=== PATIENT | male | born 1945 | race Caucasian/White ===

== ENCOUNTER 2017-12-14 14:31 | Inpatient (IN) | payer MEDICARE, BC ==
[~2017-12-14] VITALS: Ht 193 cm; Wt 135.2 kg
[~2017-12-14 14:31] MED LIST: ATORVASTATIN CA80 MG PO; CLINDAMYCIN PHOS TOP; CYANOCOBAL1000 MCG/M INJ; DIVALPROEX SOD250 MG PO; ETODOLAC400 MG PO; LISINOPRIL40 MG PO; METFORMIN PO; MIRTAZAPINE30 MG PO; OMEPRAZOLE20 M1 PO; WAFARIN PO
[2017-12-14 15:03] LABS: BASOPHILS % 0.2 % (0.0-1.0); EOSINOPHILS % 0.2 % (0.0-6.0); HEMATOCRIT 31.2 % (38.2-49.6); HEMOGLOBIN 10.2 g/dL (14.0-18.0); LYMPHOCYTES # (AUTO) 1.2 (1.0-3.2); LYMPHOCYTES % 14.5 % (18.0-39.1); MEAN CORPUSCULAR HEMOGLOBIN 31.3 pg (28-32); MEAN CORPUSCULAR HGB CONC 32.7 g/dL (31-35); MEAN CORPUSCULAR VOLUME 95.7 fL (81-99); MONOCYTES # (AUTO) 0.6 (0.2-0.8); NEUTROPHILS # (AUTO) 6.5 (2.1-6.9); NEUTROPHILS % 77.7 % (38.7-80.0); PLATELET COUNT 196 x10e3/uL (140-360); RED BLOOD COUNT 3.26 x10e6/uL (4.3-5.7); RED CELL DISTRIBUTION WIDTH 14.3 % (11.7-14.4)
[2017-12-14 15:08] LABS: INR 3.84; PARTIAL THROMBOPLASTIN TIME 38.3 seconds (23.8-35.5); PROTHROMBIN TIME 35.5 seconds (11.9-14.5)
[2017-12-14] MEDS ORDERED: SODIUM CHLORIDE 0.9% 1000ML 1,000 ML IV ONE ×2 (15:15→16:15)
[2017-12-14 15:18] LABS: ALBUMIN/GLOBULIN RATIO 0.9 (0.8-2.0); ANION GAP 12.6 mmol/L (8-16); CALCIUM 8.5 mg/dL (8.4-10.2); CREATININE, SERUM 1.58 mg/dL (0.72-1.25); POTASSIUM 4.6 mmol/L (3.5-5.1)
[2017-12-14 15:24] LABS: CREATINE KINASE MB 1.8 ng/mL (0-5.0)
[2017-12-14] MEDS ORDERED: GABAPENTIN100 MG PO (15:54)
[2017-12-14] MEDS ORDERED: FISH OIL 1,0001 EAC2 PO (15:54)
[2017-12-14] MEDS ORDERED: DIVALPROEX SOD250 MG PO (15:54)
[2017-12-14] MEDS ORDERED: MIRTAZAPINE15 MG PO (15:54)
[2017-12-14] MEDS ORDERED: FERROUS SULFAT324 MG PO (15:54)
[2017-12-14] MEDS ORDERED: METHOCARBAMOL750 MG PO (15:54)
[2017-12-14] MEDS ORDERED: TURMERIC1 GM PO (15:54)
[2017-12-14] MEDS ORDERED: JANTOVEN7.5 MG (15:54)
[2017-12-14] MEDS ORDERED: IRON SUPPLEMENT PO (15:54)
[2017-12-14] MEDS ORDERED: ASCORBIC ACID250 MG PO (15:55)
[2017-12-14] MEDS ORDERED: GLIPIZIDE5 MG PO (15:55)
[2017-12-14] MEDS ORDERED: LISINOPRIL10 MG PO (15:55)
[2017-12-14] MEDS ORDERED: VITAMIN D400 UNIT PO (15:55)
--- NOTE | 2017-12-14 16:43 | Diagnostic Imaging Report ---
PROCEDURE: A single AP view of the chest. COMPARISON: None. INDICATIONS: bleeding from bladder FINDINGS: Lines/tubes: None. Lungs: The lungs are well inflated and clear. There is no evidence of pneumonia or pulmonary edema. Pleura: There is no pleural effusion or pneumothorax. Heart and mediastinum: The heart and the mediastinum are unremarkable. Bones: No acute bony abnormality. IMPRESSION: No acute cardiopulmonary disease. Dictated by: Cali Kiser M.D. on 12/14/2017 at 16:44 Electronically approved by: Cali Kiser M.D. on 12/14/2017 at 16:44
[2017-12-14 16:50] LABS: BILIRUBIN,URINE 1+ (NEGATIVE); CLARITY,URINE TURBID (CLEAR); COLOR,URINE RED (YELLOW); KETONES,URINE NEGATIVE (NEGATIVE); LEUKOCYTE ESTERASE ,URINE NEGATIVE (NEGATIVE); NITRITE,URINE NEGATIVE (NEGATIVE); PROTEIN,URINE DIPSTICK 2+ (NEGATIVE); RBC,URINE >50 /HPF (0-5); URINE UROBILINOGEN 0.2 mg/dL (0.2 - 1)
[2017-12-14] MEDS ORDERED: HYOSCYAMINE SULFATE 0.5 MG/ML AMP IV PRN (18:30)
[2017-12-14] MEDS ORDERED: SODIUM CHLORIDE FLUSH 10 ML SYR INJ PRN (18:30)
--- OUTSIDE RECORDS SUMMARY | 2017-12-14 18:34 | XMS REPORT ---
Author Author [facility] Address Unknown Phone Unavailable Care Team Providers Care Agricultural Appraiser Name Role Phone CHRIS VASQUEZ Unavailable Unavailable Problems This patient has no known problems. Allergies, Adverse Reactions, Alerts This patient has no known allergies or adverse reactions. Medications This patient has no known medications. Results Test Description Test Time Test Comments Text Results Atomic Results Result Comments CHEST SINGLE (PORTABLE) [place] [address] Patient Name: JUDITH LUGO MR #: [id number] : 1945 Age/Sex: 72/M Req #: [id number] Adm Physician: Ordered by: CHRIS VASQUEZ MD Report #: [id number] Location: ER Room/Bed: Procedure: [id number] DX/CHEST SINGLE (PORTABLE) Exam Date: 12/14/17 Exam Time: 1542 REPORT STATUS: Signed PROCEDURE: A single AP view of the chest. COMPARISON: None. INDICATIONS: bleeding from bladder FINDINGS: Lines/tubes: None. Lungs: The lungs are well inflated and clear. There is no evidence of pneumonia or pulmonary edema. Pleura: There is no pleural effusion or pneumothorax. Heart and mediastinum: The heart and the mediastinum are unremarkable. Bones: No acute bony abnormality. IMPRESSION: No acute cardiopulmonary disease. Dictated by: Idalia Kiser M.D. on 12/14/2017 at 16: 44 Electronically approved by: Idalia Kiser M.D. on 12/14/2017 at 16:44 Dictated By: IDALIA KISER MD 43 COPY TO: CHRIS VASQUEZ MD
[2017-12-14] MEDS ORDERED: MORPHINE SULFATE 2 MG/ML SYR IV PRN (19:00)
[2017-12-14] MEDS: SODIUM CHLORIDE 0.9% 1000ML 1,000 ML IV SCH ×2 (19:26→21:00)
[2017-12-14 20:30] VITALS: BP 133/52
[2017-12-14] MEDS: NITROFURANTOIN MACROCRYSTALS 100 MG CAP PO SCH (21:00)
[2017-12-14] MEDS: FAMOTIDINE 20 MG/2 ML VIAL IV SCH (21:23)
[2017-12-14 23:30] VITALS: BP 133/52
[2017-12-15 00:50] VITALS: BP 96/52
[2017-12-15 05:00] VITALS: BP 84/39
[2017-12-15 07:42] LABS: BASOPHILS % 0.2 % (0.0-1.0); EOSINOPHILS # (AUTO) 0.1 (0.0-0.4); EOSINOPHILS % 1.8 % (0.0-6.0); HEMATOCRIT 25.1 % (38.2-49.6); HEMOGLOBIN 8.1 g/dL (14.0-18.0); LYMPHOCYTES # (AUTO) 1.5 (1.0-3.2); LYMPHOCYTES % 25.1 % (18.0-39.1); MEAN CORPUSCULAR HEMOGLOBIN 31.2 pg (28-32); MEAN CORPUSCULAR HGB CONC 32.3 g/dL (31-35); MEAN CORPUSCULAR VOLUME 96.5 fL (81-99); MONOCYTES # (AUTO) 0.7 (0.2-0.8); MONOCYTES % 10.8 % (4.4-11.3); NEUTROPHILS # (AUTO) 3.7 (2.1-6.9); NEUTROPHILS % 61.9 % (38.7-80.0); PLATELET COUNT 137 x10e3/uL (140-360); RED CELL DISTRIBUTION WIDTH 14.5 % (11.7-14.4)
[2017-12-15 07:53] LABS: INR 2.52; PARTIAL THROMBOPLASTIN TIME 37.3 seconds (23.8-35.5); PROTHROMBIN TIME 25.5 seconds (11.9-14.5)
[2017-12-15 08:05] LABS: ALBUMIN 2.6 g/dL (3.5-5.0); ALBUMIN/GLOBULIN RATIO 0.9 (0.8-2.0); ANION GAP 11.1 mmol/L (8-16); CREATININE, SERUM 1.6 mg/dL (0.72-1.25); POTASSIUM 4.1 mmol/L (3.5-5.1)
[2017-12-15 08:17] VITALS: BP 100/70
[2017-12-15 09:26] VITALS: BP 100/70
[2017-12-15] MEDS: NITROFURANTOIN MACROCRYSTALS 100 MG CAP PO SCH (10:14)
[2017-12-15] MEDS: FAMOTIDINE 20 MG/2 ML VIAL IV SCH ×2 (10:14→21:55)
[2017-12-15] MEDS: SODIUM CHLORIDE 0.9% 1000ML 1,000 ML IV SCH ×2 (10:18→22:39)
[2017-12-15] MEDS ORDERED: DEXTROSE 50% SYRINGE 50 ML IV PRN (11:15)
[2017-12-15] MEDS: INSULIN REGULAR, HUMAN 100 UNIT/1 ML 3ML VIAL SQ SCH ×3 (11:30→21:55)
[2017-12-15 12:00] VITALS: BP 95/54
--- NOTE | 2017-12-15 12:38 | History and Physical ---
Mr. Jimenez is a pleasant, 72-year-old man, a [place] , who presented to the emergency room on the with a complaint of hematuria. HISTORY OF PRESENT ILLNESS: Patient reports that he received his first dose of a chemotherapeutic agent instilled into the bladder, Gemcitabine, last week on December 07, 2017, and he developed hematuria on the morning of the . Initially the patient did not have any discomfort, but today has right flank discomfort. PAST MEDICAL HISTORY: Significant for longstanding diabetes and hypertension. He had initial diagnosis of bladder cancer in 2011 treated with BCG. He had deep venous thrombosis in the leg in 2008 and took warfarin until 2011 and stopped it with recurrence of the DVT and has been taking warfarin since that time. He notes that he was exposed to [place] in [place] and has more than 100% service-connected disability. Other surgical procedures: He has had left total knee replacement with Dr. Bipin Goyal in 2017. He has had surgeries on his toes and heel due to trauma. MEDICATIONS: Current medications at home include: 1. Fish oil. 2. Turmeric. 3. Iron supplement. 4. Divalproex 250 mg 3 times a day. 5. Methocarbamol 750 mg twice a day. 6. Gabapentin 100 mg 3 times a day. 7. Mirtazapine 45 mg at bedtime. 8. He has been taking Jantoven warfarin 7.5 mg daily. 9. Lisinopril 20 mg daily. 10. Glipizide 2.5 mg daily. 11. Vitamin C. 12. Vitamin D. PERSONAL AND SOCIAL HISTORY: He does not smoke or drink. REVIEW OF SYSTEMS GASTROINTESTINAL: Has not known of any liver problems in the past and no significant problem with constipation or diarrhea. CARDIAC: He denies any cardiac problem. No chest pain. No palpitations. ENT AND NEURO: He reports he is very hard of hearing due to using 50-mm machine guns in [place]. RENAL: Patient reports that he does see a renal specialist once a year, and they say that he is "okay." PHYSICAL EXAMINATION GENERAL: Exam at this time shows a large, obese man who is alert and responsive, 6 feet 4 inches tall, weighing 298 pounds. VITALS: Blood pressure 110/70. HEAD, EYES, EARS, NOSE AND THROAT: Unremarkable. NECK: No jugular venous distention. No bruits. THORAX: Heart sounds S1, S2 are equal. No murmurs. LUNGS: Clear. ABDOMEN: Protuberant. Minimal tenderness on the right lateral side. Liver is palpable below the right costal margin. LABS: Urinalysis shows bright red blood, greater than 50 red cells per high-power field. Chemistries today show BUN 33 and creatinine 1.6. Hemoglobin initially was 10.2, but repeat this morning is 8.1. Initial INR was 3.8, with repeat today being 2.5. ASSESSMENT 1. Hematuria, likely related to bladder. 2. Bladder cancer. 3. Type-2, adult-onset diabetes. 4. Hypertension. 5. History of previous and recurrent deep venous thrombosis. PLAN: Will withhold warfarin, and he has had bladder irrigation. Will check ultrasound of the abdomen and ask for urology evaluation. Further management based on clinical course. Job#: [id number] MH cc:JOSUE WOODARD MD
[2017-12-15] MEDS ORDERED: PHYTONADIONE 10 MG/ML AMP SQ NR (13:00)
--- NOTE | 2017-12-15 13:26 | Consultation ---
DATE OF CONSULTATION: December 15, 2017 UROLOGY CONSULTATION REASON FOR CONSULTATION: Gross hematuria. HISTORY OF PRESENT ILLNESS: Cyrus Jimenez is a 72-year-old man who has recurrent bladder cancer. The patient was previously a patient of Dr. Eduar Sifuentes, Dr. Cyrus Lobo, Dr. Ragsdale and Dr. Snyder. Most recently he is a patient of [facility]. The patient has had recurrent bladder cancer ever since 2010, and he has failed BCG immunotherapy. The patient a week ago had gemcitabine therapy at [facility] following what sounds like transurethral resection of bladder tumor a month ago. The patient noted severe gross hematuria, asked the ambulance to be taken to [facility], and the ambulance insisted on taking him to our hospital, where the emergency room placed a continuous flow hematuria catheter, did not consult Urology and admitted the patient to the hospital. Once Dr. Chavira evaluated the patient, he asked for a consultation. Patient denies any urinary tract infections or urolithiasis, reports some bladder spasms with irrigation. PAST MEDICAL AND SURGICAL HISTORY 1. Status post repair of right ankle. 2. Status post of toes repair left foot. 3. Status post left total knee arthroplasty. 4. History of left lower extremity deep vein thrombosis. 5. Obesity. FAMILY HISTORY: Noncontributory to the active urological problems. CURRENT MEDICATIONS: Please refer to the MAR. ALLERGIES: NONE. SOCIAL HISTORY: The patient quit smoking in 2010. 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 He denies current smoking, ethanol and drug use. He is retired. REVIEW OF SYSTEMS: As consistent with above history of present illness and past medical history, is otherwise negative for all other systems. PHYSICAL EXAMINATION GENERAL: A pleasant 72-year-old man lying in bed in no apparent distress. VITAL SIGNS: He is currently afebrile. His vital signs are currently stable. ABDOMEN: Obese, soft, nondistended, nontender, without costovertebral angle tenderness. Kidneys are not palpable, without hepatosplenomegaly. No obvious evidence of hernia. GENITOURINARY: Testes descended bilaterally. The patient has a normal circumcised male phallus with normal meatus with a hematuria catheter three-way in place with continuous bladder irrigation with blood-tinged urine out. I restarted the continuous irrigation and was able to get the urine cleared to a light pink. For the remaining physical examination and systems, please refer to the admission history and physical on the chart and the ERT sheet. LABORATORY STUDIES: White blood cell count is 6000. Hemoglobin is low at 8.1. It was 10.2 yesterday afternoon. Platelets are low at 137. Patient's creatinine is 1.6. It was 1.58 yesterday. Calcium is low at 8.0. The patient's creatinine 4 years ago was 1.71. No urologically relevant imaging was performed at this time. Urine culture is pending. ASSESSMENT 1. Recurrent bladder cancer. 2. Gross hematuria. 3. Anemia. 4. Thrombocytopenia. 5. Obesity. 6. Chronic renal insufficiency. 7. Hypocalcemia. 8. Coagulopathy due to Coumadin with international normalized ratio 2.52 and yesterday it was elevated at 3.84. 9. Miller catheter in situ. PLAN 1. I instructed the nurse in proper manual irrigation techniques. 2. Recommend continuing the bladder irrigation until the patient clears. Once the patient's urine is clear, I would discontinue the irrigation, and once the patient has ongoing clear urine, he may be discharged home with the Miller catheter and follow up with Brit Donovan for further care. 3. I will order the patient belladonna and opium suppositories. 4. I will order the patient prophylactic antibiotics that are more appropriate than the nitrofurantoin that was ordered. 5. Serious consideration needs to be given to giving the patient vitamin K due to the fact that his hemoglobin went from 10 to 8. 6. I would recommend following the patient's hemoglobin regularly, and should it dip below 8, I would transfuse 2 units to maintain a reserve. Thank you very much for involving us in the care of your patient. We will be happy to follow him along with you as well as an outpatient. Job#: [id number] EV cc:MD JOSUE ORTEGA MD
[2017-12-15] MEDS: CEFTRIAXONE SOD 1 GM VIAL IV SCH (15:16)
[2017-12-15] MEDS ORDERED: PHYTONADIONE 10 MG/ML AMP SQ ONE (16:00)
[2017-12-15] MEDS: BELLADONNA/OPIUM 60 MG SUPP PR PRN (18:37)
[2017-12-15 20:00] VITALS: BP 109/49
--- NOTE | 2017-12-15 21:45 | Diagnostic Imaging Report ---
EXAM: US ABDOMEN COMPLETE DATE: 12/15/2017 12:00 AM INDICATION: , Abdominal pain, bladder cancer COMPARISON: None TECHNIQUE: Transverse and longitudinal morales scale and color doppler sonographic images of the upper abdomen were obtained. FINDINGS: LIVER 14.7 cm in the right midclavicular line. Normal echogenicity, normal contour, no masses. SPLEEN 11.7 cm in maximum diameter. GALLBLADDER No stones, sludge, wall thickening (remeasured 2 mm) or pericholecystic fluid. Negative sonographic Quinonez's sign. BILE DUCTS No intra nor extra-hepatic biliary dilation. Common bile duct measures 0.4 cm PANCREAS: Not seen due to overlying bowel gas RIGHT KIDNEY: 10.9 cm Echogenicity: Normal Collecting System: No hydronephrosis Stones: None Cyst/Mass: None LEFT KIDNEY: 10.6 cm Echogenicity: Normal Collecting System: Mild hydronephrosis Stones: None Cyst/Mass: None VESSELS: Aorta: Not visualized mid to distal due to bowel gas Inferior Vena Cava: Not well visualized due to bowel gas Main Portal Vein: 0.6 cm, normal size with hepatopetal flow. FREE FLUID: None IMPRESSION: 1. Mild left hydronephrosis. 2. Hepatic steatosis. 3. No cholelithiasis or evidence of acute cholecystitis. Signed by: Dr Breanna Chapman MD on 12/15/2017 9:41 PM
[2017-12-16] VITALS (7 sets, daily range): BP systolic 92–120; BP diastolic 41–58
[2017-12-16] MEDS: SODIUM CHLORIDE 0.9% 1000ML 1,000 ML IV SCH ×3 (02:18→17:56)
[2017-12-16] MEDS: BELLADONNA/OPIUM 60 MG SUPP PR PRN ×4 (04:30→22:33)
[2017-12-16 06:52] LABS: BASOPHILS % 0.4 % (0.0-1.0); EOSINOPHILS # (AUTO) 0.4 (0.0-0.4); EOSINOPHILS % 7.3 % (0.0-6.0); LYMPHOCYTES # (AUTO) 1.4 (1.0-3.2); MEAN CORPUSCULAR HEMOGLOBIN 31.4 pg (28-32); MEAN CORPUSCULAR HGB CONC 31.7 g/dL (31-35); MONOCYTES # (AUTO) 0.6 (0.2-0.8); MONOCYTES % 11.6 % (4.4-11.3); NEUTROPHILS # (AUTO) 2.5 (2.1-6.9); NEUTROPHILS % 51.3 % (38.7-80.0); PLATELET COUNT 142 x10e3/uL (140-360); RED CELL DISTRIBUTION WIDTH 14.7 % (11.7-14.4)
[2017-12-16 07:02] LABS: INR 1.61
[2017-12-16 07:03] LABS: HEMATOCRIT 20.8 % (38.2-49.6)
[2017-12-16 07:04] LABS: HEMOGLOBIN 6.6 g/dL (14.0-18.0)
[2017-12-16 07:10] LABS: ANION GAP 10.2 mmol/L (8-16); CALCIUM 8.2 mg/dL (8.4-10.2); CREATININE, SERUM 1.49 mg/dL (0.72-1.25); POTASSIUM 4.2 mmol/L (3.5-5.1)
[2017-12-16] MEDS: INSULIN REGULAR, HUMAN 100 UNIT/1 ML 3ML VIAL SQ SCH ×4 (07:30→21:00)
[2017-12-16] MEDS: FAMOTIDINE 20 MG/2 ML VIAL IV SCH ×2 (08:59→21:37)
[2017-12-16] MEDS ORDERED: SODIUM CHLORIDE 0.9% 250ML 250 ML IV ONE (11:00)
[2017-12-16] MEDS: CEFTRIAXONE SOD 1 GM VIAL IV SCH (12:32)
[2017-12-16] MEDS ORDERED: SODIUM CHLORIDE 0.9% 250ML 250 ML ONE (21:47)
[2017-12-17] MEDS: SODIUM CHLORIDE 0.9% 1000ML 1,000 ML IV SCH ×3 (02:23→18:08)
[2017-12-17 04:00] VITALS: BP 106/54
[2017-12-17 07:09] LABS: BASOPHILS % 0.4 % (0.0-1.0); EOSINOPHILS # (AUTO) 0.4 (0.0-0.4); EOSINOPHILS % 8.2 % (0.0-6.0); HEMATOCRIT 27.6 % (38.2-49.6); HEMOGLOBIN 8.8 g/dL (14.0-18.0); LYMPHOCYTES # (AUTO) 1.9 (1.0-3.2); LYMPHOCYTES % 37.1 % (18.0-39.1); MEAN CORPUSCULAR HEMOGLOBIN 30.7 pg (28-32); MEAN CORPUSCULAR HGB CONC 31.9 g/dL (31-35); MEAN CORPUSCULAR VOLUME 96.2 fL (81-99); MONOCYTES # (AUTO) 0.4 (0.2-0.8); MONOCYTES % 8.4 % (4.4-11.3); NEUTROPHILS # (AUTO) 2.3 (2.1-6.9); NEUTROPHILS % 45.5 % (38.7-80.0); PLATELET COUNT 164 x10e3/uL (140-360); RED BLOOD COUNT 2.87 x10e6/uL (4.3-5.7); RED CELL DISTRIBUTION WIDTH 16.9 % (11.7-14.4)
[2017-12-17 07:23] LABS: INR 1.13; PROTHROMBIN TIME 13.6 seconds (11.9-14.5)
[2017-12-17] MEDS: INSULIN REGULAR, HUMAN 100 UNIT/1 ML 3ML VIAL SQ SCH ×4 (07:30→21:00)
[2017-12-17] MEDS: FAMOTIDINE 20 MG/2 ML VIAL IV SCH ×2 (09:00→21:51)
[2017-12-17 09:04] VITALS: BP 141/65
[2017-12-17 09:20] VITALS: BP 141/65
[2017-12-17 11:29] VITALS: BP 123/58
[2017-12-17] MEDS: CEFTRIAXONE SOD 1 GM VIAL IV SCH (13:31)
[2017-12-17 20:02] VITALS: BP 142/65
[2017-12-17 22:53] VITALS: BP 142/65
[2017-12-18] VITALS (7 sets, daily range): BP systolic 119–143; BP diastolic 57–74
[2017-12-18] MEDS: SODIUM CHLORIDE 0.9% 1000ML 1,000 ML IV SCH ×3 (02:26→17:32)
[2017-12-18 07:01] LABS: BASOPHILS % 0.3 % (0.0-1.0); EOSINOPHILS # (AUTO) 0.3 (0.0-0.4); EOSINOPHILS % 9.9 % (0.0-6.0); LYMPHOCYTES # (AUTO) 1.2 (1.0-3.2); LYMPHOCYTES % 34.1 % (18.0-39.1); MEAN CORPUSCULAR HEMOGLOBIN 30.5 pg (28-32); MEAN CORPUSCULAR VOLUME 95.4 fL (81-99); MONOCYTES # (AUTO) 0.3 (0.2-0.8); MONOCYTES % 9.3 % (4.4-11.3); NEUTROPHILS # (AUTO) 1.6 (2.1-6.9); NEUTROPHILS % 46.1 % (38.7-80.0); PLATELET COUNT 147 x10e3/uL (140-360); RED BLOOD COUNT 2.62 x10e6/uL (4.3-5.7); RED CELL DISTRIBUTION WIDTH 16.2 % (11.7-14.4)
[2017-12-18 07:18] LABS: INR 1.15; PROTHROMBIN TIME 13.8 seconds (11.9-14.5)
[2017-12-18] MEDS: INSULIN REGULAR, HUMAN 100 UNIT/1 ML 3ML VIAL SQ SCH ×3 (07:30→16:30)
[2017-12-18] MEDS: FAMOTIDINE 20 MG/2 ML VIAL IV SCH (10:40)
[2017-12-18] MEDS: CEFTRIAXONE SOD 1 GM VIAL IV SCH (13:29)
== END 2017-12-18 20:10 | disposition short-term general hospital (02) | DRG 687 ==
LOC: ER 14:42 → ERHOLD 18:32 → IMCU 20:03 → OBSVTOIN 12-15 13:43 → MED/SURG 12-16 06:40
PROVIDERS: ADMIT Internal Medicine Cardiovascular Disease; ATTEND Internal Medicine Cardiovascular Disease
PROC: 30243N1 Transfusion of Nonautologous Red Blood Cells into Central Vein, Percutaneous Approach (ICD-10-PCS; principal; 2017-12-16)
DX: C67.9 Malignant neoplasm of bladder, unspecified (principal); D68.32 Hemorrhagic disorder due to extrinsic circulating anticoagulants; D62 Acute posthemorrhagic anemia; Z86.718 Personal history of other venous thrombosis and embolism; Z79.01 Long term (current) use of anticoagulants; R31.0 Gross hematuria; D69.6 Thrombocytopenia, unspecified; E83.51 Hypocalcemia; E66.9 Obesity, unspecified; Z68.36 Body mass index [BMI] 36.0-36.9, adult; I12.9 Hypertensive chronic kidney disease with stage 1 through stage 4 chronic kidney disease, or unspecified chronic kidney disease; E11.22 Type 2 diabetes mellitus with diabetic chronic kidney disease; N18.9 Chronic kidney disease, unspecified; Z79.4 Long term (current) use of insulin
CPT/HCPCS: 36415; 51703; 71045; 76700; 80048; 80053; 81001; 82550; 82553; 82948; 83605; 84484; 85025; 85610; 85730; 86850; 86900; 86920; 87086; 93005; 99284; G0378; J0696; J1980; J3430; J7030; J7050; P9016